=== PATIENT | male | born 1980 | race Caucasian/White ===

== ENCOUNTER 2019-05-28 08:07 | Emergency (ER) | payer SELFPAY ==
[2019-05-28 08:40] VITALS: BP 118/82
[2019-05-28] MEDS ORDERED: Tetan/Diph/Pertus SYR(Tdap)* 0.5 ML SYR(BOOSTRIX) use SYR contains LATEX IM ONE (09:08)
[2019-05-28] MEDS ORDERED: Lidocaine 1% MPF ** 5 ML VIAL INJ ONE (09:44)
[2019-05-28] MEDS ORDERED: Cephalexin CAP* 500 MG PO ONE (10:32)
--- NOTE | 2019-05-28 10:34 | UC ---
Hand/Wrist HPI - HPI Summary HPI Summary: 38-year-old male comes in with chief complaint of an injury to his left middle finger. This happened this morning just prior to arrival at work. He accidentally closed his left fingers and a truck walker. He has a laceration on the dorsum of the left middle finger. Right second finger does have some abrasions. Patient has full range of motion full-strength no sensation deficit. Not sure of his last tetanus shot. Bleeding was stopped by direct pressure. - History Of Current Complaint Chief Complaint: UCSkin Stated Complaint: LAC ON LT MIDDLE FINGER Time Seen by Provider: 05/28/19 09:24 Pain Intensity: 3 - Allergies/Home Medications Allergies/Adverse Reactions: Allergies Allergy/AdvReac Type Severity Reaction Status Date / Time No Known Allergies Allergy Verified 05/28/19 08:37 Home Medications: Home Medications Cephalexin CAP* [Keflex CAP*] 500 mg PO TID #20 cap 05/28/19 [Rx] PMH/Surg Hx/FS Hx/Imm Hx Previously Healthy: Yes - Surgical History Surgical History: Yes Surgery Procedure, Year, and Place: L wrist. hernia repair - Family History Known Family History: Positive: Non-Contributory - Social History Alcohol Use: None Substance Use Type: None Smoking Status (MU): Never Smoked Tobacco Review of Systems All Other Systems Reviewed And Are Negative: Yes Constitutional: Positive: Negative Skin: Positive: Other - see hpi Eyes: Positive: Negative ENT: Positive: Negative Respiratory: Positive: Negative Cardiovascular: Positive: Negative Gastrointestinal: Positive: Negative Motor: Positive: Negative Neurovascular: Positive: Negative Musculoskeletal: Positive: Other: - see hpi Neurological/Mental Status: Positive: Negative Psychological: Positive: Negative Physical Exam Triage Information Reviewed: Yes Appearance: Well-Appearing, No Pain Distress, Well-Nourished Vital Signs: Initial Vital Signs Temp 98.5 F 05/28/19 08:37 Pulse 78 05/28/19 08:37 Resp 14 05/28/19 08:37 BP 118/82 05/28/19 08:37 Pulse Ox 100 05/28/19 08:37 Vital Signs Reviewed: Yes Eye Exam: Normal Eyes: Positive: Conjunctiva Clear Neck: Positive: Supple Respiratory: Positive: No respiratory distress Musculoskeletal: Positive: Strength Intact, ROM Intact Neurological: Positive: Alert Psychological: Positive: Age Appropriate Behavior Skin: Positive: Other - Left middle finger has a 2.5 cm flap laceration with the open and approximately. It does go over the PIP joint on the dorsum. I do not see the tendon finger has full range of motion full-strength normal sensation normal capillary refill. Procedures - Laceration/Wound Repair 1 Location: upper extremity - left middle finger dorsum over the PIP, Other - 2.5 cm subcutaneous. Tendon not visualized. Description: Irregular - flap opened proximally Anesthesia: Local, 1.0%, Lido Betadine Prep?: No - and irrigated by nursing Laceration/Wound Explored: clean Closure: Single Layer Debridement: none Suture Type: Prolene - 5-0 Number of Sutures: 13 Layer Closure?: No Sterile Dressing Applied?: Yes - by nursing Hand/Wrist Course/Dx - Course Course Of Treatment: Patient was given T tap here in clinic. Patient was neurovascularly intact on examination full-strength normal sensation. I did not see the tendon on my examination and it was intact by examination. Start the patient on Keflex and he is to follow-up with a hand specialist. - Differential Dx/Diagnosis Provider Diagnosis: Laceration of left middle finger Discharge ED - Sign-Out/Discharge Documenting (check all that apply): Patient Departure All imaging exams completed and their final reports reviewed: No Studies - Discharge Plan Condition: Stable Disposition: HOME Prescriptions: Cephalexin CAP* [Keflex CAP*] 500 mg PO TID #20 cap Patient Education Materials: Care For Your Stitches (ED), Finger Laceration (ED ) Forms: *Work Release Referrals: Bella Godinez MD [Medical Doctor] - Elijah Holt MD [Medical Doctor] - Additional Instructions: FOLLOW UP WITH THE ORTHOPEDIC HAND SPECIALIST. SUTURES OUT IN 8-10 DAYS WITH THE HAND SPECIALIST. YOU HAD A TDAP (TETANUS, DIPHTHERIA, PERTUSSIS) IMMUNIZATION TODAY. GET REEVALUATED IF NOT IMPROVING OR WORSE; SIGNS OF INFECTION, WEAKNESS, NUMBNESS, LOSS OF CIRCULATION OR ANY QUESTIONS OR CONCERNS. - Billing Disposition and Condition Condition: STABLE Disposition: Home
== END 2019-05-28 10:45 | disposition home or self-care (01) ==
LOC: UCCORT 08:07
DX: S61.213A Laceration without foreign body of left middle finger without damage to nail, initial encounter (principal); W23.0XXA Caught, crushed, jammed, or pinched between moving objects, initial encounter; Y92.9 Unspecified place or not applicable
CPT/HCPCS: 12001; 90471; 90715; 99203; A9270-GY; G0463